=== PATIENT | male | born 1995 | race Caucasian/White ===

== ENCOUNTER 2017-03-04 14:55 | Inpatient (IN) ==
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
[2017-03-04 15:33] LABS: Basophils % 0.1 %; Eosinophils # 0.1 K/mcL (0.0-0.6); Eosinophils % 0.7 %; Hematocrit 45.6 % (37.5-50.1); Hemoglobin 15.1 g/dL (12.9-16.9); Immature Granulocytes % 0.1 % (0-4); Lymphocytes # 1.3 K/mcL (0.6-4.6); Lymphocytes % 18.8 %; Mean Corpuscular HGB Conc 33.1 g/dL (31.6-35.5); Mean Corpuscular Hemoglobin 30.7 pg (28.0-33.3); Mean Corpuscular Volume 92.7 fL (83.0-100.0); Mean Platelet Volume 11.4 fL (9.4-12.4); Monocytes # 0.5 K/mcL (0.0-1.3); Monocytes % 7.1 %; Neutrophils # 4.9 K/mcL (1.6-8.9); Platelet Count 150 K/mcL (140-400); Red Blood Count 4.92 M/mcL (4.19-5.50); Red Cell Distribution Width 13.4 % (11.5-14.5); Segmented Neutrophils % 73.2 %
[2017-03-04 15:43] LABS: Bilirubin,Urine Negative (Negative); Blood,Urine Negative (Negative); Clarity,Urine Cloudy (Clear); Color,Urine Yellow (Yellow); Glucose,Urine (UA) Normal (Normal); Ketones,Urine Negative (Negative); Leukocyte Esterase,Urine Negative (Negative); Nitrite,Urine Negative (Negative); PH,Urine 7.5 pH Units (5.0-8.0); Protein,Urine Trace mg/dL (Neg-Trace); Specific Gravity,Urine 1.029 (1.010-1.025); Urobilinogen,Urine Normal (Normal)
[2017-03-04 15:44] LABS: BUN/Creatinine Ratio 12 (6-26); Blood Urea Nitrogen 10 mg/dL (8-26); Calcium 9.1 mg/dL (8.6-10.8); Carbon Dioxide 29 mEq/L (19-29); Chloride 105 mEq/L (98-109); Glucose 131 mg/dL (70-99); Osmolality,Calculated 291 (280-300); Potassium 3.6 mEq/L (3.5-4.5); Sodium 140 mEq/L (136-145); eGFR For African Americans > 60 (> 60); eGFR For Non-African Americans > 60 (> 60)
[2017-03-04 15:45] LABS: Bacteria,Urine None Seen per hpf (None-Few); Hyaline Casts,Urine None Seen per lpf (None-Few); Squamous Epithelial Cell,Urine Few per lpf (None-Few); WBC,Urine 0-3 per hpf (0-3)
[2017-03-04 15:46] LABS: Ethanol < 10 mg/dL (0-10); Salicylate < 5.0 mg/dL (15-30)
[2017-03-04 15:49] LABS: Amphetamine Screen,Urine Negative ng/mL (Cutoff=1000); Barbiturate Screen,Urine Negative ng/mL (Cutoff=200); Benzodiazepines Screen,Urine Negative ng/mL (Cutoff=200); Cannabinoid Screen,Urine Positive ng/mL (Cutoff = 50); Cocaine Screen,Urine Negative ng/mL (Cutoff= 300); Opiate Screen,Urine Negative ng/mL (Cutoff=300); Phencyclidine Screen,Urine Negative ng/mL (Cutoff=25)
[2017-03-04 16:31] LABS: Acetaminophen < 1.0 mcg/mL (10-30)
[2017-03-04] MEDS ORDERED: MOM Conc 10 ML UD.LIQ PO PRN (18:31)
[2017-03-04] MEDS ORDERED: hydrOXYzine pamoate 25 MG CAPSULE PO PRN (18:31)
[2017-03-04] MEDS ORDERED: Ibuprofen 400 MG TABLET PO PRN (18:31)
[2017-03-04] MEDS ORDERED: Mag Hydrox/Al Hydrox/Simeth 30 ML UDC PO PRN (18:31)
[2017-03-04] MEDS ORDERED: *HR* LORazepam 2 MG/ML VIAL IM PRN (18:31)
[2017-03-04] MEDS ORDERED: Haloperidol Lactate 5 MG/ML VIAL IM PRN (18:31)
[2017-03-04] MEDS ORDERED: *HR* LORazepam 1 MG TABLET PO PRN (18:31)
[2017-03-04] MEDS: Nicotine 21 MG PATCH.TD24 TD SCH (19:10)
[2017-03-04] MEDS: traZODone 50 MG TABLET PO PRN (20:22)
[2017-03-05] MEDS: Nicotine 21 MG PATCH.TD24 TD SCH (08:57)
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
[2017-03-05] MEDS: Divalproex (12 HR) 500 MG TABLET PO SCH (20:41)
[2017-03-05] MEDS: traZODone 50 MG TABLET PO PRN (20:41)
[2017-03-06 08:31] VITALS: BP 114/77
[2017-03-06] MEDS: Divalproex (12 HR) 500 MG TABLET PO SCH (08:45)
[2017-03-06] MEDS: Nicotine 21 MG PATCH.TD24 TD SCH (08:45)
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
[2017-03-06] MEDS ORDERED: FLUARIX QUAD 2017-18 36MOS UP/PF 0.5 ML SYRINGE IM ONE (11:35)
== END 2017-03-06 10:50 | disposition home or self-care (01) | DRG 753 ==
LOC: EMEROO 14:55 → 1ANU 18:15
PROVIDERS: ADMIT Psychiatry & Neurology Psychiatry; ATTEND Psychiatry & Neurology Psychiatry